=== PATIENT | female | born 1945 | race Caucasian/White ===

== ENCOUNTER 2018-01-11 09:22 | Day surgery (SDC) | payer MEDICARE, BC ==
[2018-01-10 10:21] VITALS: BMI 36.6
[2018-01-11] MEDS ORDERED: Fentanyl 100 MCG/2 ML VIAL ONE (09:52)
[2018-01-11] MEDS ORDERED: Midazolam HCl 2 mg/2 ml Vial ONE (09:52)
[2018-01-11] MEDS ORDERED: Indomethacin 50 MG SUPP ONE (10:07)
[2018-01-11] MEDS ORDERED: Iothalamate Meglumine 60% 50 ML VIAL FS ONE (10:07)
[2018-01-11] MEDS ORDERED: cefTRIAXone\\ROCEPHIN 1 GM VIAL ONE (10:14)
[2018-01-11] MEDS ORDERED: Sodium Chloride 0.9% 100 ML ONE (10:14)
[2018-01-11] MEDS ORDERED: Indomethacin 50 MG SUPP PR SCH (10:30)
[2018-01-11] MEDS ORDERED: Ondansetron HCl/PF 4 MG/2 ML Vial ONE (13:04)
[2018-01-11] MEDS ORDERED: Lidocaine 1% PF 5 ML VIAL ONE (13:04)
[2018-01-11] MEDS ORDERED: ePHEDrine/0.9% NaCl/PF SYRINGE 50 mg/10 ml ONE (13:04)
[2018-01-11] MEDS ORDERED: Glycopyrrolate 0.2 MG/ML 5 ML SYRINGE ONE (13:04)
[2018-01-11] MEDS ORDERED: PROPOFOL 200 MG/20 ML VIAL ONE (13:04)
--- NOTE | 2018-01-11 15:58 | RAD ---
ERCP: Date: 01-11-18 History: Evaluate for choledocholithiasis. FINDINGS: Four images provided during an ERCP demonstrate intrahepatic and extrahepatic biliary dilatation, inc luding significant dilation of the CBD. There is a filling defect noted within the common bile duct s uggesting choledocholithiasis. Alternative consideration for focal filling defect would be air bubble or sludge ball. The fourth and final image demonstrates placement of a stent within the common bile duct. IMPRESSION: Intra and extrahepatic biliary dilatation. Filling defect within the CBD suggest possible choledochol ithiasis. Final image demonstrates placement of a common bile duct stent. POS: [facility]
--- NOTE | 2018-01-11 19:27 | OP ---
PROCEDURES PERFORMED: Endoscopic retrograde cholangiopancreatography with sphincterotomy, stone extr action, and biliary stent placement. PHYSICIAN: Dr. Mata. ANESTHESIA: Pain medication given by Anesthesiology Department. PREOPERATIVE DIAGNOSES: Choledocholithiasis by MRI, cholangiogram. POSTOPERATIVE DIAGNOSES: 1. Enlarged common bile duct to approximately 12 mm. 2. Three common bile duct stone, status post crushing and removal with basket and balloon. 3. Status post 10 [place]alan 7 cm biliary stent placement. PROCEDURE IN DETAIL: A written consent was obtained prior to procedure. After adequate sedation, si de view endoscope was advanced down the stomach through the pylorus into duodenum. The ampulla was v isualized and appears to be in a very difficult position to cannulate. Selective cannulation was ach ieved with a guidewire into the common bile duct. Injection of contrast showed a uniformly dilated c ommon duct to approximately 12 mm with 3 distinct filling defects noted. A generous sphincterotomy w as performed at 12 o'clock position with good hemostasis. A biliary basket was then used to crush th e balloon with removal of black fragments. The common duct was swept several times with a 12 mm ball oon with extraction of multiple dark debris and stone fragments. However, there was no clear drainag e of the contrast from the bile duct. A guide apparatus was then placed over the guidewire into the common duct. Initially, a 5 cm 11.5 [place] stent was placed, but was unsuccessful because of the ang ulation of the implant relative to the scope. The guide apparatus was then replaced. A 7 cm 10-Fren ch stent was then able to place into the common duct with good drainage. The instruments then fully removed. The patient tolerated the procedure well. ASSESSMENT: 1. Choledocholithiasis. 2. Status post sphincterotomy and stone extraction. 3. Status post biliary stent placement. RECOMMENDATIONS: Repeat cholangiogram and stent removal in 1 month.
== END 2018-01-11 15:23 | disposition home or self-care (01) ==
LOC: SDC 09:22
PROVIDERS: ATTEND Internal Medicine Gastroenterology
PROC: 0F798DZ Dilation of Common Bile Duct with Intraluminal Device, Via Natural or Artificial Opening Endoscopic (ICD-10-PCS; principal; 2018-01-11)
PROC: 0FC98ZZ Extirpation of Matter from Common Bile Duct, Via Natural or Artificial Opening Endoscopic (ICD-10-PCS; 2018-01-11)
DX: K80.50 Calculus of bile duct without cholangitis or cholecystitis without obstruction (principal); E11.9 Type 2 diabetes mellitus without complications; J45.909 Unspecified asthma, uncomplicated; I10 Essential (primary) hypertension; E78.00 Pure hypercholesterolemia, unspecified; Z79.82 Long term (current) use of aspirin; Z79.4 Long term (current) use of insulin; Z79.899 Other long term (current) drug therapy
CPT/HCPCS: 36416; 74330; J0696; J2250; J3010; J7050; Q9961

== ENCOUNTER 2018-02-28 08:17 | Day surgery (SDC) | payer MEDICARE, BC ==
[2018-02-27 11:55] VITALS: BMI 37.4
[2018-02-28] MEDS ORDERED: Iothalamate Meglumine 60% 50 ML VIAL FS ONE (09:51)
[2018-02-28] MEDS ORDERED: Fentanyl 100 MCG/2 ML VIAL ONE (09:54)
[2018-02-28] MEDS ORDERED: Sodium Chloride 0.9% 100 ML ONE (09:59)
[2018-02-28] MEDS ORDERED: cefTRIAXone\\ROCEPHIN 1 GM VIAL ONE (09:59)
[2018-02-28] MEDS ORDERED: SUGAMMADEX SODIUM 200 MG/2 ML VIAL ONE (10:54)
--- NOTE | 2018-02-28 12:05 | OP ---
DATE OF PROCEDURE: 02/28/2018 PROCEDURE: ERCP with stent removal and stone extraction. PHYSICIAN: Barrington Mata M.D. ANESTHESIA: Medication given per Anesthesiology Department. PREPROCEDURE DIAGNOSIS: History of choledocholithiasis, status post stone extraction and stent place ment. POSTPROCEDURE DIAGNOSES: 1. Single stone remained, removed. 2. Status post stent removal. PROCEDURE IN DETAIL: A written consent was obtained prior to procedure. After adequate sedation, si de view endoscope was advanced down the stomach down to duodenum. The previously placed stent was vi sualized and was removed with a snare. A repeat endoscopy was performed. A 12 mm balloon was then u sed to intubate the bile duct. Injection of contrast showed a single filling defect that was extract ed with a balloon. Occlusive cholangiogram was then performed and was normal. The bile duct was dil ated to approximately 12 mm in the proximal and mid portion and tapered towards the ampulla. There w as excretion of contrast and bile. There was no remaining filling defect seen. The instrument was t hen fully removed. The patient tolerated the procedure well. ASSESSMENT: 1. Single remaining stone was extracted. 2. Stent was removed. 3. Normal cholangiogram. RECOMMENDATIONS: Discharge to home after recovery room criteria satisfied.
--- NOTE | 2018-02-28 12:13 | RAD ---
SIX SEPARATE IMAGES FROM AND ERCP: INDICATIONS: History of stone in the common bile duct, need for removal. FINDINGS: The first submitted images from the ERCP demonstrate the ERCP catheter within the common bile duct wi th an associated balloon. No additional filling defect is evident. Subsequent images demonstrate co ntrast pouring into the distal common bile duct and subsequently into the duodenum. Subsequent image s demonstrate placement of the balloon catheter within the distal common bile duct, near the ampulla, without focal filling defect. Final images demonstrate removal of the catheter and contrast excreti ng into the duodenum, without residual filling defect. The final image demonstrates a moderate amoun t of retained contrast within the biliary ducts. IMPRESSION: 1. No intraluminal filling defects to suggest the presence of choledocholithiasis seen on the submit yin images. 2. Mild amount of retained contrast within the biliary system on final submitted images. POS: [facility]
[2018-02-28] MEDS ORDERED: ePHEDrine/0.9% NaCl/PF SYRINGE 50 mg/10 ml ONE (14:16)
[2018-02-28] MEDS ORDERED: PROPOFOL 200 MG/20 ML VIAL ONE (14:16)
[2018-02-28] MEDS ORDERED: Glycopyrrolate 0.2 MG/ML 5 ML SYRINGE ONE (14:16)
[2018-02-28] MEDS ORDERED: Lidocaine 1% PF 5 ML VIAL ONE (14:16)
== END 2018-02-28 12:28 | disposition home or self-care (01) ==
LOC: SDC 08:17
PROVIDERS: ATTEND Internal Medicine Gastroenterology
PROC: 0FPB8DZ Removal of Intraluminal Device from Hepatobiliary Duct, Via Natural or Artificial Opening Endoscopic (ICD-10-PCS; principal; 2018-02-28)
PROC: 0FC98ZZ Extirpation of Matter from Common Bile Duct, Via Natural or Artificial Opening Endoscopic (ICD-10-PCS; 2018-02-28)
DX: K80.50 Calculus of bile duct without cholangitis or cholecystitis without obstruction (principal); Z79.84 Long term (current) use of oral hypoglycemic drugs; Z79.899 Other long term (current) drug therapy; Z79.82 Long term (current) use of aspirin; Z98.890 Other specified postprocedural states
CPT/HCPCS: 74330; J0696; J2001; J2704; J3010; J7050; Q9961

== ENCOUNTER 2018-05-30 11:08 | Outpatient (CLI) | payer MEDICARE, BC ==
--- NOTE | 2018-05-30 11:51 | RAD ---
CHEST PA AND LATERAL: HISTORY: A 72-year-old female with a history of dyspnea. COMPARISON: 08/27/2014 FINDINGS: Minimal cardiomegaly. No confluent pneumonia, overt edema, or pleural effusion. IMPRESSION: 1. No significant acute intrathoracic disease. 2. Minimal stable cardiomegaly. 3. Atherosclerosis of the aorta. POS: [facility]
== END 2018-05-30 11:09 | disposition home or self-care (01) ==
LOC: RAD 11:08
PROVIDERS: ATTEND Internal Medicine Critical Care Medicine
DX: R06.00 Dyspnea, unspecified (principal); I70.0 Atherosclerosis of aorta; I51.7 Cardiomegaly
CPT/HCPCS: 71046

== ENCOUNTER 2019-06-03 11:43 | Outpatient (CLI) | payer MEDICARE, BC ==
--- NOTE | 2019-06-03 11:57 | RAD ---
EXAM: Chest PA and lateral: HISTORY: Dyspnea COMPARISON: 05/30/2018 FINDINGS: Lung hassan are clear. Vascular markings are normal. Heart and mediastinum appear unremarkable. Degenerative changes in the spine appear stable. IMPRESSION: No acute finding
== END 2019-06-03 11:44 | disposition home or self-care (01) ==
LOC: RAD 11:43
PROVIDERS: ATTEND Internal Medicine Critical Care Medicine
DX: R06.00 Dyspnea, unspecified (principal)
CPT/HCPCS: 71046

== ENCOUNTER 2020-07-28 08:38 | Outpatient (CLI) | payer MEDICARE, BC ==
--- NOTE | 2020-07-28 09:58 | RAD ---
TWO VIEW CHEST: HISTORY: Dyspnea. COMPARISON: 06/03/2019. FINDINGS: The lungs appear clear of infiltrate. Heart size upper normal but stable. Vasculature normal. The osseous structures show degenerative spine changes which appear stable. IMPRESSION: No acute process. POS: [id number]
== END 2020-07-28 08:39 | disposition home or self-care (01) ==
LOC: BICRAD 08:38
PROVIDERS: ATTEND Internal Medicine Critical Care Medicine
DX: R06.00 Dyspnea, unspecified (principal)
CPT/HCPCS: 71046

== ENCOUNTER 2021-07-27 09:09 | Outpatient (CLI) | payer MEDICARE, BC | END 2021-07-27 09:10 | disposition home or self-care (01) | LOC: RAD 09:09 | PROVIDERS: ATTEND Internal Medicine Critical Care Medicine | DX: R06.00 Dyspnea, unspecified (principal) | CPT/HCPCS: 71046 ==

== ENCOUNTER 2022-07-27 10:13 | Outpatient (CLI) | payer MEDICARE, BC | END 2022-07-27 10:14 | disposition home or self-care (01) | LOC: RAD 10:13 | PROVIDERS: ATTEND Internal Medicine Critical Care Medicine | DX: R06.00 Dyspnea, unspecified (principal) | CPT/HCPCS: 71046 ==

== ENCOUNTER 2023-07-31 11:08 | Outpatient (CLI) | payer MEDICARE, BC | END 2023-07-31 11:09 | disposition home or self-care (01) | LOC: RAD 11:08 | PROVIDERS: ATTEND Internal Medicine Critical Care Medicine | DX: R06.00 Dyspnea, unspecified (principal); I51.7 Cardiomegaly; M47.814 Spondylosis without myelopathy or radiculopathy, thoracic region | CPT/HCPCS: 71046 ==

== ENCOUNTER 2023-09-22 16:00 | Emergency (ER) | payer MEDICARE, BC ==
[2023-09-22 16:39] LABS: #Basophils 0.1 thou/uL (0.0-0.2); #Eosinphils 0.2 thou/uL (0.0-0.7); #Monocytes 0.9 thou/uL (0.11-0.59); #Neutrophils 6.6 thou/uL (1.40-6.50); %Basophils 0.7 % (0.0-1.0); %Lymphocytes 20.2 % (21.0-51.0); %Monocytes 8.7 % (0.0-10.0); %Neutrophils 68.1 % (42.0-75.0); Hematocrit 41.2 % (36.0-47.0); Hemoglobin 13.3 g/dL (12.0-16.0); Mean Corpuscular HGB CONC 32.3 g/dL (32.0-36.0); Mean Corpuscular Hemoglobin 31.5 pg (27.0-31.0); Mean Corpuscular Volume 97.6 fl (78.0-98.0); Mean Platelet Volume 9.8 fL (7.4-10.4); Platelet Count 299 10x3/uL (130-400); Red Blood Cell (RBC) Count 4.22 mill/uL (4.20-5.40); White Blood Cell (WBC) Count 9.7 10x3/uL (4.8-10.8)
[2023-09-22 17:14] LABS: ALT (SGPT) 11 U/L (8-55); AST (SGOT) 12 U/L (5-34); Albumin 3.8 g/dL (3.4-4.8); Alkaline Phosphatase 112 U/L (40-110); Anion Gap 11 mmol/L (10-20); BUN (Urea Nitrogen) 21 mg/dL (9.8-20.1); Bilirubin, Total 0.5 mg/dL (0.2-1.2); Calc. Creatinine Clearance 0 mL/min (70-130); Calcium 9.2 mg/dL (7.8-10.44); Carbon Dioxide 31 mmol/L (23-31); Chloride 103 mmol/L (98-107); Estimated GFR 42; Globulin 3.2 g/dL (2.4-3.5); Glucose 269 mg/dL (83-110); Potassium 4.5 mmol/L (3.5-5.1); Sodium 140 mmol/L (136-145)
[2023-09-22 17:39] LABS: Bacteria/HPF 4+ HPF (None Seen); Bilirubin Negative (Negative); Blood, Urine Negative (Negative); CAUTI Indications for Culture Alt mental st,lethar; Clarity Turbid (Clear); Glucose, Urine (Dipstick) 300 mg/dL (Negative); Ketone, Urine Negative (Negative); Leukocyte 500 Leu/uL (Negative); Nitrite 2+ (Negative); Protein, Urine (Dipstick) 30 mg/dL (Neg-Trace); RBC/HPF None Seen HPF (0-3); Specific Gravity, Urine 1.018 (1.002-1.036); Squamous Epithelial 0-3 HPF (0-3); Urobilinogen Normal mg/dL (Less than 2); WBC/HPF Greater than 50 HPF (0-3); pH, Urine 5.5 (5.0-9.0)
[2023-09-22 17:51] LABS: Urine Culture Reflex Yes Yes
== END 2023-09-22 18:38 | disposition home or self-care (01) ==
LOC: ERS 16:00
DX: N39.0 Urinary tract infection, site not specified (principal); E11.9 Type 2 diabetes mellitus without complications; I10 Essential (primary) hypertension; E78.5 Hyperlipidemia, unspecified
CPT/HCPCS: 36415; 80053; 81001; 83605; 85025; 87077; 87086; 87186; 99284

== ENCOUNTER 2024-07-31 10:21 | Outpatient (CLI) | payer MEDICARE | END 2024-07-31 10:22 | disposition home or self-care (01) | LOC: RAD 10:21 | PROVIDERS: ATTEND Internal Medicine Critical Care Medicine | DX: R06.00 Dyspnea, unspecified (principal) | CPT/HCPCS: 71046 ==